=== PATIENT | female | born 1950 | race Caucasian/White ===

== ENCOUNTER → 2016-08-17 09:44 | Outpatient (CLI) | payer MEDICARE ==
[2012-10-31 08:23] VITALS: BMI 22.4
[~2016-08-17 09:44] MED LIST: AMBIEN10 MG PO; ASPIRIN EC81 MG PO; BIOTIN5 MG PO; CALTRATE-600600 MG PO; FEMARA2.5 MG PO; MOBIC7.5 MG PO; MULTI-DAY VITAM1 TAB PO; STOOL SOFTENER250 MG PO; VITAMIN B COMPL1 TA1 PO; VITAMIN D31000 UNIT PO
== END | disposition home or self-care (01) ==
LOC: D.CT 09:44
DX: C43.61 Malignant melanoma of right upper limb, including shoulder (principal); C50.412 Malignant neoplasm of upper-outer quadrant of left female breast; D63.0 Anemia in neoplastic disease

== ENCOUNTER → 2016-09-02 09:41 | Outpatient (CLI) | payer MEDICARE ==
[2012-10-31 08:23] VITALS: BMI 22.4
== END | disposition home or self-care (01) ==
LOC: D.MRI 08-31 14:00
DX: C43.61 Malignant melanoma of right upper limb, including shoulder (principal); C50.412 Malignant neoplasm of upper-outer quadrant of left female breast

== ENCOUNTER → 2016-09-07 12:51 | Outpatient (CLI) | payer MEDICARE ==
[2012-10-31 08:23] VITALS: BMI 22.4
== END | disposition home or self-care (01) ==
LOC: D.MRI 12:51
DX: C43.61 Malignant melanoma of right upper limb, including shoulder (principal)

== ENCOUNTER → 2016-09-14 09:31 | Outpatient (CLI) | payer MEDICARE ==
[2012-10-31 08:23] VITALS: BMI 22.4
== END | disposition home or self-care (01) ==
LOC: D.NM 09-09 10:30
DX: C43.61 Malignant melanoma of right upper limb, including shoulder (principal)

== ENCOUNTER 2016-09-27 05:52 | Outpatient (CLI) | payer MEDICARE ==
[~2016-09-27] VITALS: Ht 170.2 cm; Wt 63.4 kg
[2016-09-27] MEDS ORDERED: TAXOL PO (06:30)
[2016-09-27] MEDS ORDERED: MYBETRIC PO (06:31)
[2016-09-27] MEDS ORDERED: EZFE 200200 MG PO (06:32)
[2016-09-27 06:36] LABS: BASOPHILS 0.2 % (0-2); EOSINOPHILS 3.2 % (0-7); HEMATOCRIT 41.3 % (36.0-48.0); HEMOGLOBIN 13.8 g/dL (12-16); IMMATURE GRANULOCYTES 0.2 % (0-5); LYMPHOCYTES 18.5 % (15-50); MCH 33.3 pg (26.0-34.0); MCHC 33.4 g/dL (31.0-37.0); MCV 99.8 fL (80.0-100.0); MEAN PLATELET VOLUME 9.7 fL (7.4-10.4); NEUTROPHILS 67.9 % (40-80); PLATELET COUNT 229 10x3/uL (130-400); RBC 4.14 10x6/uL (4.00-5.40); RDW 11.7 % (11.5-14.5); WBC 5.9 10x3/uL (4.8-10.8)
[2016-09-27 06:43] VITALS: BP 106/71; Ht 170.2 cm; Wt 63.4 kg
[2016-09-27 06:58] LABS: CARBON DIOXIDE 28.7 mmol/L (21.0-32.0); CREATININE - SERUM 0.9 mg/dL (0.6-1.3); POTASSIUM - SERUM 3.7 mmol/L (3.5-5.1)
[2016-09-27 07:01] LABS: APTT 26.7 SECONDS (22.8-39.4); INR 0.96 (0.85-1.17); PROTIME 12.6 SECONDS (11.6-15.0)
== END 2016-09-27 15:40 | disposition home or self-care (01) ==
LOC: D.OPS 05:52
PROVIDERS: Radiology Diagnostic Radiology
DX: M89.9 Disorder of bone, unspecified (principal); C50.919 Malignant neoplasm of unspecified site of unspecified female breast

== ENCOUNTER → 2017-03-16 08:57 | Outpatient (CLI) | payer MEDICARE ==
[2016-09-27 06:43] VITALS: BMI 21.9
[~2017-03-16 08:57] MED LIST changes: +EZFE 200200 MG PO; +MYBETRIC PO; +TAXOL PO
== END | disposition home or self-care (01) ==
LOC: D.CT 03-15 10:30
DX: C50.412 Malignant neoplasm of upper-outer quadrant of left female breast (principal)

== ENCOUNTER → 2017-10-03 13:47 | Outpatient (CLI) | payer MEDICARE ==
[2016-09-27 06:43] VITALS: BMI 21.9
== END | disposition home or self-care (01) ==
LOC: D.CT 13:47
DX: C50.412 Malignant neoplasm of upper-outer quadrant of left female breast (principal); D63.0 Anemia in neoplastic disease

== ENCOUNTER 2017-10-05 10:57 | Outpatient (CLI) | payer MEDICARE ==
[~2017-10-05] VITALS: Ht 170.2 cm; Wt 60.0 kg
--- NOTE | ~2017-10-05 | HEMODYNAMI ---
PATIENT:EYAL CROCKETT MEDICAL RECORD: [id number] : 46 LOCATION:[facility] ADMISSION DATE: 10/05/17 Generatedon:10/05/201713:59 Patient name: EYAL CROCKETT Patient #: [id number] SSN: : Date of study: 10/05/2017 Page: Of Hemodynamic Procedure Report Patient Data Patient Demographics Procedure consent was obtained First Name: EYAL Gender: Female Last Name: KEIRA : 1950 [facility] Initial: SYLVAIN Age: 67 year(s) Patient #: [id number] Race: Unknown Additional ID: [id number] Contact details Address: [address] [place] [address] State: [place] City: [place] Zip code: [address] Past Medical History Allergies Allergen Reaction Date Comments Reported Tetracycline 10/05/2017 Natural rubber 10/05/2017 and latex Admission Admission Data Admission Date: 10/05/2017 Admission Time: 10:57 Height (in.): 67 BSA: 1.69 (m2) Height (cm.): 170.18 BMI: 20.67 (kg/m2) Weight (lbs.): 132 Weight (kg.): 59.87 Procedure Procedure Types Cath Procedure Peripheral Cath Diagnostic Procedure Cath Peripheral Bone Biopsy Deep Procedure Description Procedure Date Procedure Date: 10/05/2017 Procedure Start Time: 13:31 Procedure Staff Name Function Luther Balderrama MD Performing Physician Patricia Landaverde RT Cardiopulmonary Technologist Patricia Landaverde RT Monitor Yesenia Turner RN Nurse Nabila Jovel RN Nurse Jc Mendez RT Scrub Procedure Data Cath Procedure Fluoroscopy Diagnostic fluoroscopy Total fluoroscopy Time: 2.7 time: 2.7 min min Diagnostic fluoroscopy Total fluoroscopy dose: 47 dose: 47 mGy mGy Procedure Medications Medication Administration Route Dosage Lidocaine 1% added to field 20 Heparin Flush Bag added to field 1 bags (1000units/500ml NS) Hemodynamics Rest BSA: 1.69 (m2) O2 Consumption: Estimated: 155.54 (ml/min) O2 Consumption indexed : Estimated:92.04 (ml/min/m) Heart Rate: 69 (bpm) Snapshots Pre Cath Intra NCS Post Cath Vital Signs Time Heart Resp SPO2 etCO2 NIBP (mmHg) Rhythm Pain Sedation Rate (ipm) (%) (mmHg) Status Level (bpm) 13:16:10 95 10 100 34.6 169/80(126) NSR 0 (11) 10(A) , No pain 13:20:34 77 15 100 38.3 158/76(119) NSR 0 (11) 10(A) , No pain 13:24:52 72 13 100 37.6 109/55(84) NSR 0 (11) 10(A) , No pain 13:29:51 73 15 100 36.8 Measuring NSR 0 (11) 10(A) , No pain 13:30:18 72 20 100 33.8 116/59(91) NSR 0 (11) 10(A) , No pain 13:34:25 82 16 99 34.6 105/66(87) NSR 0 (11) 10(A) , No pain 13:38:33 82 7 99 31.6 125/68(89) NSR 0 (11) 10(A) , No pain 13:42:43 87 18 98 22.5 129/80(99) NSR 0 (11) 10(A) , No pain 13:47:18 84 13 98 19.5 Disturbed NSR 0 (11) 10(A) , No pain 13:48:48 86 16 98 18 144/75(108) NSR 0 (11) 10(A) , No pain 13:53:47 21 Measuring NSR 0 (11) 10(A) , No pain 13:54:22 16.5 Disturbed NSR 0 (11) 10(A) , No pain 13:57:53 0 114/59(74) NSR 0 (11) 10(A) , No pain Medications Time Medication Route Dose Verified Delivered Reason Notes Effec tiveness by by 13:24:07 Lidocaine 1% added 20ml Luther Sloan used for to vial [place] Balderrama procedure field MD YAO 13:24:21 Heparin Flush added 1 Luther Sloan used for Bag to bags Tacos Balderrama procedure (1000units/500ml field MD YAO NS) Procedure Log Time Note 12:33:13 Patient Height : 67 inches 12:33:28 Patient Weight : 132 lbs 12:34:04 Use device set IR Diagnostic 13:04:40 Time tracking: Regular hours (M-F 7:00 - 5:00) 13:04:56 Plan of Care:Hemodynamics will remain stable., Cardiac rhythm will remain stable., Comfort level will be maintained., Respiratory function will remain adequate., Patient/ family verbilizes understanding of procedure., Procedure tolerated without complication., Recovers from procedure without complications.. 13:05:05 Patient received from Outpatients to IR Alert and oriented. Tansferred to table in Prone position. 13:05:07 Correct patient and procedure confirmed by team. 13:05:09 Signed procedure consent form obtained from patient. 13:05:16 H&P Date Dictated: 10/05/2017 Within 30 days and on chart.. 13:05:19 Family in waiting room. 13:05:22 Patient NPO since Midnight. 13:05:51 Patient allergic to Tetracycline 13:06:25 Patient allergic to Natural rubber and latex 13:06:42 - 13:06:42 - 13:06:44 ----Pre-sedation anethsthesia assessment.---- 13:07:46 please see anesthesia notes for monitoring of patient during procedure 13:08:01 - 13:08:01 - 13:09:37 IV patent on arrival in right antecubital with D5/.45%NaCl at KVO. 13:09:55 Lumbar area was prepped with chlora-prep and draped in sterile fashion 13:10:04 - 13:10:10 Tegaderm 4 x 4 ([id number]) opened to sterile field. 13:10:11 Sterile Angiographic Pack opened to sterile field. 13:10:12 Bag Decanter () opened to sterile field. 13:10:22 - 13:14:53 ECG and BP/O2 sat monitors applied to patient. 13:14:54 Vital chart was started 13:14:57 Baseline sample Acquired. 13:15:00 Baseline sample Acquired. 13:15:01 Full Disclosure recording started 13:15:02 - 13:15:11 Baseline sample Acquired. 13:24:07 Lidocaine 1% 20ml vial added to field was administered by Luther solo MD; used for procedure; 13:24:21 Heparin Flush Bag (1000units/500ml NS) 1 bags added to field was administered by Luther Balderrama MD; used for procedure; 13:25:07 Physician arrived 13:26:34 Final Timeout: patient, procedure, and site verified with staff and physician. All members of the team are in agreement. 13:27:59 Procedure started. 13:34:38 bone bx needle introduced. 13:50:24 Procedure ended.(Physican Out) 13:52:30 Fluoroscopy time 02.70 minutes. 13:52:34 Fluoroscopy dose: 47 mGy 13:52:34 Flurop Dose total: 47 13:52:37 Procedure and supply charges have been captured, reviewed, submitted an d are correct. 13:54:44 Report given to Outpatients. 13:59:14 Vital chart was stopped Device Usage Item Name Manufacture Quantity Catalog Hospital Part Current Minimal Lot# / Number Charge Number Stock Stock Serial# Code Tegaderm 4 x 3M 1 [id number] 4 ([id number]) Sterile Cardinal 1 [id number] 5 Angiographic Health Pack Bag Decanter [employer] 1 [id number] () [employer] Signature Audit Gary Stage Time Signature Unsigned Intra-Procedure 10/05/2017 Patricia Landaverde 1:59:11 PM RT(R) Signatures Monitor : Patricia Landaverde RT Signature : Date : Time : [address] [address]
[2017-10-05 12:02] VITALS: BP 111/61; Ht 170.2 cm; Wt 60.0 kg
[2017-10-05 12:29] LABS: BASOPHILS 0.3 % (0-2); EOSINOPHILS 1.7 % (0-7); HEMATOCRIT 34.7 % (36.0-48.0); HEMOGLOBIN 11.5 g/dL (12-16); IMMATURE GRANULOCYTES 0.3 % (0-5); LYMPHOCYTES 18.1 % (15-50); MCH 32.3 pg (26.0-34.0); MCHC 33.1 g/dL (31.0-37.0); MCV 97.5 fL (80.0-100.0); MEAN PLATELET VOLUME 9.7 fL (7.4-10.4); MONOCYTES 13.6 % (2-11); PLATELET COUNT 209 10x3/uL (130-400); RBC 3.56 10x6/uL (4.00-5.40); RDW 12.2 % (11.5-14.5); WBC 3.5 10x3/uL (4.8-10.8)
[2017-10-05 12:41] LABS: CALC OSMOLALITY 282 mosm/kg (275-300); CALCIUM 8.8 mg/dL (8.5-10.1); CARBON DIOXIDE 26.4 mmol/L (21.0-32.0); CHLORIDE - SERUM 107 mmol/L (98-107); CREATININE - SERUM 0.8 mg/dL (0.6-1.3); GLUCOSE 95 mg/dL (74-106); POTASSIUM - SERUM 3.7 mmol/L (3.5-5.1); SODIUM 141 mmol/L (136-145); UREA NITROGEN 18 mg/dL (7-18); eGFR NON AFRICAN AMERICAN 75 mL/min (90-120)
[2017-10-05 12:53] LABS: APTT 26.3 SECONDS (22.8-39.4); INR 1.14 (0.85-1.17); PROTIME 14.2 SECONDS (11.6-15.0)
== END 2017-10-05 16:00 | disposition home or self-care (01) ==
LOC: D.SP 10:57 → D.OPS 10:57 → D.CT 13:00 → D.OPS 16:00
PROVIDERS: Radiology Diagnostic Radiology
DX: M89.9 Disorder of bone, unspecified (principal); Z01.812 Encounter for preprocedural laboratory examination

== ENCOUNTER → 2017-10-27 12:48 | Outpatient (CLI) | payer MEDICARE ==
[2017-10-05 12:02] VITALS: BMI 20.7
== END | disposition home or self-care (01) ==
LOC: D.RAD 12:48
DX: R13.12 Dysphagia, oropharyngeal phase (principal)

== ENCOUNTER → 2018-04-20 09:13 | Outpatient (CLI) | payer MEDICARE ==
[2017-10-05 12:02] VITALS: BMI 20.7
== END | disposition home or self-care (01) ==
LOC: D.CT 09:00
DX: C50.412 Malignant neoplasm of upper-outer quadrant of left female breast (principal); D63.0 Anemia in neoplastic disease; C79.51 Secondary malignant neoplasm of bone

== ENCOUNTER → 2018-09-24 09:39 | Outpatient (CLI) | payer MEDICARE ==
[2017-10-05 12:02] VITALS: BMI 20.7
== END | disposition home or self-care (01) ==
LOC: D.CT 09:39
PROVIDERS: ATTEND Internal Medicine Medical Oncology
DX: C50.412 Malignant neoplasm of upper-outer quadrant of left female breast (principal); D63.0 Anemia in neoplastic disease; C79.51 Secondary malignant neoplasm of bone

== ENCOUNTER → 2018-12-24 08:39 | Outpatient (CLI) | payer MEDICARE ==
[2017-10-05 12:02] VITALS: BMI 20.7
== END | disposition home or self-care (01) ==
LOC: D.CT 08:39
PROVIDERS: ATTEND Internal Medicine Medical Oncology
DX: C50.412 Malignant neoplasm of upper-outer quadrant of left female breast (principal); D63.0 Anemia in neoplastic disease; C79.51 Secondary malignant neoplasm of bone

== ENCOUNTER → 2019-03-28 07:58 | Outpatient (CLI) | payer MEDICARE ==
[2017-10-05 12:02] VITALS: BMI 20.7
[~2019-03-28 07:58] MED LIST changes: +FASLODEX IM; +IBRANCE PO; +RESTASIS OP; +[UNRECOGNIZED DRUG - OTHER] IM
== END | disposition home or self-care (01) ==
LOC: D.NM 07:58
PROVIDERS: ATTEND Internal Medicine Medical Oncology
DX: C50.412 Malignant neoplasm of upper-outer quadrant of left female breast (principal); D63.0 Anemia in neoplastic disease; C79.51 Secondary malignant neoplasm of bone; D70.1 Agranulocytosis secondary to cancer chemotherapy

== ENCOUNTER 2019-03-28 12:35 | Emergency (ER) | payer MEDICARE ==
[~2019-03-28] VITALS: Ht 170.2 cm; Wt 60.9 kg
[~2019-03-28 12:35] MED LIST changes: -FASLODEX IM; -IBRANCE PO; -RESTASIS OP; -[UNRECOGNIZED DRUG - OTHER] IM
[2019-03-28 12:42] VITALS: BP 139/70; Ht 170.2 cm; Wt 60.9 kg
[2019-03-28] MEDS ORDERED: IBRANCE PO (12:47)
[2019-03-28] MEDS ORDERED: [UNRECOGNIZED DRUG - OTHER] IM (12:48)
[2019-03-28] MEDS ORDERED: FASLODEX IM (12:49)
[2019-03-28] MEDS ORDERED: RESTASIS OP (12:50)
[2019-03-28 13:18] LABS: HEMATOCRIT 33.2 % (36.0-48.0); HEMOGLOBIN 11.7 g/dL (12-16); LYMPHOCYTES 18.7 % (15-50); MCH 37.6 pg (26.0-34.0); MCHC 35.2 g/dL (31.0-37.0); MCV 106.8 fL (80.0-100.0); MEAN PLATELET VOLUME 7.9 fL (7.4-10.4); NEUTROPHILS 74.1 % (40-80); PLATELET COUNT 239 10x3/uL (130-400); RBC 3.11 10x6/uL (4.00-5.40); RDW 13.1 % (11.5-14.5); WBC 3.4 10x3/uL (4.8-10.8)
[2019-03-28 13:24] LABS: AMORPHOUS SEDIMENT <1+ /lpf (NONE SEEN); APPEARANCE CLEAR (CLEAR); BACTERIA FEW /hpf (NEGATIVE); BILIRUBIN NEGATIVE (NEGATIVE); COLOR YELLOW (YELLOW); EPITHELIAL CELLS OCC /hpf (0-5); GLUCOSE NEGATIVE (NEGATIVE); KETONE NEGATIVE (NEGATIVE); MUCUS <1+ /lpf (NONE SEEN); NITRITE NEGATIVE (NEGATIVE); PROTEIN TRACE mg/dL (NEGATIVE); RED CELLS - URINE OCC /hpf (0-5); SPECIFIC GRAVITY 1.005 (1.005-1.020); UROBILINOGEN NORMAL (NORMAL); WHITE CELLS - URINE NSEEN /hpf (NEGATIVE)
[2019-03-28 13:27] LABS: CALC OSMOLALITY 288 mosm/kg (275-300); CARBON DIOXIDE 30.9 mmol/L (21.0-32.0); CHLORIDE - SERUM 104 mmol/L (98-107); CREATININE - SERUM 0.8 mg/dL (0.6-1.3); GLUCOSE 110 mg/dL (74-106); POTASSIUM - SERUM 3.7 mmol/L (3.5-5.1); SODIUM 142 mmol/L (136-145); UREA NITROGEN 26 mg/dL (7-18); eGFR NON AFRICAN AMERICAN 75 mL/min (90-120)
[2019-03-28 13:35] LABS: ALBUMIN 3.6 g/dL (3.4-5.0); ALKALINE PHOSPHATASE 51 U/L (46-116); ALT (SGPT) 33 U/L (10-68); AMYLASE - SERUM 24 U/L (25-115); BILIRUBIN - TOTAL 0.36 mg/dL (0.2-1.3); LIPASE 88 U/L (73-393); PROTEIN - SERUM 6.8 g/dL (6.4-8.2)
[2019-03-28 13:37] LABS: TROPONIN-I < 0.017 ng/mL (0.000-0.060)
== END 2019-03-28 15:10 ==
LOC: D.ER 12:35
PROVIDERS: Family Medicine
DX: S20.212A Contusion of left front wall of thorax, initial encounter (principal); S99.922A Unspecified injury of left foot, initial encounter; W19.XXXA Unspecified fall, initial encounter; Y93.9 Activity, unspecified; Y92.9 Unspecified place or not applicable; M19.90 Unspecified osteoarthritis, unspecified site

== ENCOUNTER 2019-03-29 06:30 | Emergency (ER) | payer MEDICARE ==
[~2019-03-29] VITALS: Ht 170.2 cm; Wt 60.5 kg
[~2019-03-29 06:30] MED LIST changes: +FASLODEX IM; +IBRANCE PO; +RESTASIS OP; +[UNRECOGNIZED DRUG - OTHER] IM
[2019-03-29 06:36] VITALS: Ht 170.2 cm; Wt 60.5 kg
[2019-03-29 07:18] LABS: BASOPHILS 0.2 % (0-2); EOSINOPHILS 0.3 % (0-7); HEMATOCRIT 38.5 % (36.0-48.0); IMMATURE GRANULOCYTES 0.2 % (0-5); LYMPHOCYTES 14.8 % (15-50); MCH 37.5 pg (26.0-34.0); MCHC 33.8 g/dL (31.0-37.0); MEAN PLATELET VOLUME 9.5 fL (7.4-10.4); MONOCYTES 6.2 % (2-11); NEUTROPHILS 78.3 % (40-80); PLATELET COUNT 266 10x3/uL (130-400); RBC 3.47 10x6/uL (4.00-5.40); RDW 13.6 % (11.5-14.5)
[2019-03-29 07:19] LABS: WBC 6.1 10x3/uL (4.8-10.8)
[2019-03-29 07:56] LABS: APPEARANCE HAZY (CLEAR); BILIRUBIN NEGATIVE (NEGATIVE); COLOR YELLOW (YELLOW); GLUCOSE NEGATIVE (NEGATIVE); KETONE SMALL mg/dL (NEGATIVE); NITRITE NEGATIVE (NEGATIVE); PROTEIN NEGATIVE (NEGATIVE); SPECIFIC GRAVITY 1.015 (1.005-1.020); UROBILINOGEN NORMAL (NORMAL)
[2019-03-29 07:57] LABS: AMORPHOUS SEDIMENT >1+ /lpf (NONE SEEN); BACTERIA FEW /hpf (NEGATIVE); EPITHELIAL CELLS OCC /hpf (0-5); GRANULAR CAST RARE /lpf (NONE SEEN); MUCUS <1+ /lpf (NONE SEEN); RED CELLS - URINE OCC /hpf (0-5); WHITE CELLS - URINE RARE /hpf (NEGATIVE)
[2019-03-29 08:52] LABS: CALC OSMOLALITY 281 mosm/kg (275-300); CALCIUM 9.9 mg/dL (8.5-10.1); CARBON DIOXIDE 26.9 mmol/L (21.0-32.0); CHLORIDE - SERUM 103 mmol/L (98-107); GLUCOSE 112 mg/dL (74-106); SODIUM 139 mmol/L (136-145); UREA NITROGEN 21 mg/dL (7-18); eGFR NON AFRICAN AMERICAN 58 mL/min (90-120)
[2019-03-29 09:01] LABS: ALBUMIN 3.6 g/dL (3.4-5.0); ALKALINE PHOSPHATASE 48 U/L (46-116); ALT (SGPT) 29 U/L (10-68); AMYLASE - SERUM 22 U/L (25-115); BILIRUBIN - TOTAL 0.41 mg/dL (0.2-1.3); LIPASE 87 U/L (73-393); PROTEIN - SERUM 6.8 g/dL (6.4-8.2); TROPONIN-I < 0.017 ng/mL (0.000-0.060)
[2019-03-29 09:25] VITALS: BP 125/70
== END 2019-03-29 09:26 | disposition home or self-care (01) ==
LOC: D.ER 06:30
PROVIDERS: Family Medicine
DX: K29.70 Gastritis, unspecified, without bleeding (principal); R11.10 Vomiting, unspecified; M19.90 Unspecified osteoarthritis, unspecified site

== ENCOUNTER → 2019-06-03 14:52 | Outpatient (CLI) | payer MEDICARE ==
[2019-03-29 06:36] VITALS: BMI 20.8
== END | disposition home or self-care (01) ==
LOC: D.RAD 14:52
PROVIDERS: ATTEND Internal Medicine Medical Oncology
DX: C50.412 Malignant neoplasm of upper-outer quadrant of left female breast (principal)

== ENCOUNTER → 2019-07-09 11:04 | Outpatient (CLI) | payer MEDICARE ==
[2019-03-29 06:36] VITALS: BMI 20.8
== END | disposition home or self-care (01) ==
LOC: D.NM 11:04
PROVIDERS: ATTEND Internal Medicine Gastroenterology
DX: R10.84 Generalized abdominal pain (principal); R14.2 Eructation; R63.4 Abnormal weight loss